=== PATIENT | female | born 1945 | race Caucasian/White ===

== ENCOUNTER → 2017-03-25 | Outpatient (CLI) | payer OTHER, MEDICARE | LOC: RAD 03:09 | DX: Z12.31 Encounter for screening mammogram for malignant neoplasm of breast (principal) ==

== ENCOUNTER → 2017-06-08 | Outpatient (CLI) | payer OTHER, MEDICARE | LOC: ULTRA 14:47 | DX: I65.23 Occlusion and stenosis of bilateral carotid arteries (principal) ==

== ENCOUNTER → 2018-04-18 | Outpatient (CLI) | payer OTHER, MEDICARE | LOC: RAD 11:45 | DX: Z12.31 Encounter for screening mammogram for malignant neoplasm of breast (principal) ==

== ENCOUNTER → 2018-09-16 | Outpatient (CLI) | payer OTHER, MEDICARE | LOC: RAD 09:37 | DX: R05 Cough (principal) ==

== ENCOUNTER → 2019-02-08 | Outpatient (CLI) | payer OTHER, MEDICARE | LOC: NUC 01-16 14:59 | DX: M81.0 Age-related osteoporosis without current pathological fracture (principal); Z78.0 Asymptomatic menopausal state ==

== ENCOUNTER → 2019-05-15 | Outpatient (CLI) | payer OTHER, MEDICARE ==
[~2019-05-15] MED LIST: LIPITOR40 MG PO; ROBAXIN500 MG PO; SYNTHROID50 MCG PO; WELLBUTRIN XL150 MG PO
== END ==
LOC: RAD 13:43
DX: Z12.31 Encounter for screening mammogram for malignant neoplasm of breast (principal)

== ENCOUNTER → 2019-07-25 | Outpatient (CLI) | payer OTHER, MEDICARE | LOC: ULTRA 09:24 | DX: M79.605 Pain in left leg (principal) ==

== ENCOUNTER → 2019-12-11 | Outpatient (CLI) | payer OTHER, MEDICARE ==
[~2019-12-11] VITALS: Ht 165.1 cm; Wt 56.7 kg
[~2019-12-11] MED LIST changes: +CELEXA 20 MG TA20 MG PO; +TOPROL XL25 MG PO; +ZYNCOL30 M1 PO
--- NOTE | 2019-12-12 12:54 | P ---
[facility] [place] [address] PROCEDURE REPORT Name: RUSLAN MENDOZA Room #: REG [facility].#: [id number] Admission: 12/11/19 Attend Phys: Ruel De La Torre Discharge: Date of : 41 Report #: [id number] THIS REPORT FOR: //name// CC: Ruel Horowitz MD DATE OF SERVICE: 12/11/2019 PROCEDURE PERFORMED: Colonoscopy with biopsies. HISTORY OF PRESENT ILLNESS: The patient is a 74-year-old female who is here for repeat colonoscopy 5-year followup with a history of adenomatous polyps. Denies any symptoms. No family history of colon cancer. DESCRIPTION OF PROCEDURE: The risks and benefits of the procedure were explained to the patient, those risks including but not limited to bleeding, perforation and the risk of sedation. She understood these risks and gave informed consent. Sedation was given using propofol per anesthesia. Next, a digital rectal exam was initially performed, which was normal. Next, using a standard Olympus colonoscope, the scope was placed in the patient's anus and advanced under direct vision to the cecum. The overall prep was excellent. In the cecum, there was a 3 mm sessile polyp. This was removed with cold forceps, otherwise, normal. The ileocecal valve was normal. Ascending, transverse and descending colon were normal. A few scattered diverticula were noted in the sigmoid colon, otherwise normal. The rectal mucosa was normal. On retroflexion, small nonbleeding internal hemorrhoids were noted. The scope was then withdrawn and the procedure terminated. The patient tolerated the procedure well. IMPRESSION: 1. Small cecal polyp. 2. Sigmoid diverticulosis. 3. Small internal hemorrhoids. 4. Otherwise, normal colonoscopy. RECOMMENDATIONS: 1. Await biopsy results. 2. If polyp is adenomatous, would recommend repeat colonoscopy in 5 years. Thank you for allowing me to participate in her care. <ELECTRONICALLY SIGNED> By: Ruel Charlse MD 12/12/19 1254 [id number] Ruel Charles MD /nt
--- NOTE | 2019-12-12 16:07 | PATH ---
[facility] [address] [place] [address] PATHOLOGY RPT PROCEDURE Name: REJIRUSLAN PACHECO Room #: REG CL M.R.#: [id number] Admission: 12/11/19 Date of : 41 Discharge: Report #: [id number] Path Case #: [id number] [facility] Accession Number: [id number] . 01 Material submitted: . cecum - POLYP AT CECUM . 01 Clinical history: . Pre-OP DX: Hx of polyps Post-OP DX: Cecal polyp . 02 Diagnosis: Polyp, at cecum, endoscopic biopsy: - Tubular adenoma. - Negative for high-grade dysplasia. (IUV:classification analyst; 12/12/2019) MBR 12/12/2019 1254 Local . 02 Electronically signed: . Erum Andrade MD, Pathologist NPI- [id number] . 01 Gross description: . Received in formalin labeled "Ruslan Bahena, polyp at cecum," are 2 segments of self soft tissue measuring 0.7 x 0.2 x 0.1 cm in aggregate dimensions and ranging from 0.3 to 0.4 cm in maximum dimension. The specimen is submitted entirely in cassette A1. (TSD; 12/11/2019) TOB/TOB 12/11/2019 1751 Local . 02 Pathologist provided ICD-10: D12.0 . 02 CPT . 580892 Specimen Comment: A courtesy copy of this report has been sent to [phone] Specimen Comment: Report sent to Performed at: [address], [place] [id number] MD Mal Vera MD Phone: [phone] Performed at: [address] [id number] MD Erum Andrade MD Phone: [phone]
== END | disposition home or self-care (01) ==
LOC: GI 06:56
DX: Z12.11 Encounter for screening for malignant neoplasm of colon (principal); Z86.010 Personal history of colon polyps; D12.0 Benign neoplasm of cecum; K57.30 Diverticulosis of large intestine without perforation or abscess without bleeding; K64.8 Other hemorrhoids; I10 Essential (primary) hypertension; E78.5 Hyperlipidemia, unspecified; E03.9 Hypothyroidism, unspecified; F41.9 Anxiety disorder, unspecified; F32.9 Major depressive disorder, single episode, unspecified; Z98.890 Other specified postprocedural states; Z79.899 Other long term (current) drug therapy; Z87.891 Personal history of nicotine dependence

== ENCOUNTER → 2020-04-24 | Outpatient (CLI) | payer OTHER | LOC: CAT 13:13 | PROVIDERS: ATTEND Neuromusculoskeletal Medicine & OMM | DX: Z13.6 Encounter for screening for cardiovascular disorders (principal); E78.00 Pure hypercholesterolemia, unspecified; I25.10 Atherosclerotic heart disease of native coronary artery without angina pectoris ==

== ENCOUNTER → 2020-06-17 | Outpatient (CLI) | payer OTHER, MEDICARE | LOC: RAD 11:36 | PROVIDERS: ATTEND Neuromusculoskeletal Medicine & OMM | DX: Z12.31 Encounter for screening mammogram for malignant neoplasm of breast (principal); M81.0 Age-related osteoporosis without current pathological fracture; M85.88 Other specified disorders of bone density and structure, other site ==

== ENCOUNTER → 2021-06-25 | Outpatient (CLI) | payer OTHER, MEDICARE | LOC: BC 15:44 | PROVIDERS: ATTEND Neuromusculoskeletal Medicine & OMM | DX: Z12.31 Encounter for screening mammogram for malignant neoplasm of breast (principal) ==